=== PATIENT | male | born 1995 | race Caucasian/White ===

== ENCOUNTER 2017-06-02 14:27 | Emergency (ER) | payer BC ==
[2017-06-02 14:49] VITALS: BP 114/73
--- NOTE | 2017-06-02 15:26 | UC ---
Respiratory Complaint HPI - HPI Summary HPI Summary: Patient presents with complaints of ear pain left more than right, 3 days, sore throat which has gotten better, and chest congestion and coughing, and most recently eye drainage, redness and discomfort. He denies any change in vision or eye pain. He denies any chest pain, dyspnea, fever,chills, abdominal pain, nausea, vomiting or diarrhea. - History of Current Complaint Chief Complaint: UCGeneralIllness Stated Complaint: PINK EYE BOTH EYES/EAR INFECTION Time Seen by Provider: 06/02/17 15:10 Hx Obtained From: Patient Onset/Duration: Gradual Onset, Lasting Days Timing: Constant Severity Initially: Mild Severity Currently: Moderate Character: Cough: Productive Aggravating Factors: Deep Breaths, Recumbent Position Alleviating Factors: Upright Position, Spontaneous Resolution Associated Signs And Symptoms: Positive: URI, Nasal Congestion - Risk Factors Pulmonary Embolism Risk Factors: Negative Cardiac Risk Factors: Negative Tuberculosis Risk Factors: Negative - Allergies/Home Medications Allergies/Adverse Reactions: Allergies Allergy/AdvReac Type Severity Reaction Status Date / Time No Known Allergies Allergy Verified 06/02/17 14:42 PMH/Surg Hx/FS Hx/Imm Hx Previously Healthy: Yes - Surgical History Surgical History: None - Social History Occupation: Student Lives: Alone Alcohol Use: Rare Substance Use Type: None Smoking Status (MU): Never Smoked Tobacco Review of Systems Constitutional: Negative Skin: Negative Eyes: Drainage, Eye Redness ENT: Negative, Sore Throat, Ear Ache, Nasal Discharge, Sinus Congestion, Sinus Pain/Tenderness Respiratory: Cough Cardiovascular: Negative Gastrointestinal: Negative Genitourinary: Negative Motor: Negative Musculoskeletal: Negative Neurological: Negative All Other Systems Reviewed And Are Negative: Yes Physical Exam Triage Information Reviewed: Yes Appearance: Well-Appearing Vital Signs: Initial Vital Signs Temp 98.1 F 06/02/17 14:43 Pulse 50 06/02/17 14:43 Resp 16 06/02/17 14:43 BP 114/73 06/02/17 14:43 Pulse Ox 100 06/02/17 14:43 Vital Signs Reviewed: Yes Eyes: Positive: Conjunctiva Inflamed, Discharge ENT Exam: Normal ENT: Positive: Nasal congestion, Nasal drainage, TM dull, TM red, Sinus tenderness, Uvula midline Neck exam: Normal Neck: Positive: 1 Respiratory Exam: Normal Cardiovascular Exam: Normal Cardiovascular: Positive: RRR, No Murmur, Pulses Normal, Brisk Capillary Refill Abdominal Exam: Normal Abdomen Description: Positive: Nontender, No Organomegaly, Soft Bowel Sounds: Positive: Present Musculoskeletal Exam: Normal Neurological Exam: Normal Psychological Exam: Normal Skin Exam: Normal UC Diagnostic Evaluation - Laboratory O2 Sat by Pulse Oximetry: 100 Respiratory Course/Dx - Course Course Of Treatment: Patient was treated with zpk, and neomycin opth euye drops. He was told to follow up with Dr. Weston in two days if his symptoms persist. Discharged home in stable condition. - Differential Dx/Diagnosis Differential Diagnosis/HQI/PQRI: Other - otitis media conjunctivitis Provider Diagnoses: otitis media. conjunctivitis Discharge - Discharge Plan Condition: Stable Disposition: HOME Prescriptions: Azithromycin TAB* [Zithromax TAB (Z-PACO) 250 mg #6 tabs] 250 mg PO DAILY #6 tab Neomycin/Polym/HC OPTH.SUSP* [Cortisporin OPHTH.SUSP*] 1 drop BOTH EYES Q4H 5 Days #1 btl Patient Education Materials: Otitis Media (ED), Conjunctivitis (ED) Referrals: [facility] - Siddharth RODRÍGUEZ [Primary Care Provider] - Ruperto Kim MD [Medical Doctor] -
== END 2017-06-02 15:28 | disposition home or self-care (01) ==
LOC: UCEAST 14:27
DX: H66.92 Otitis media, unspecified, left ear (principal); H10.9 Unspecified conjunctivitis
CPT/HCPCS: 99202; G0463